=== PATIENT | female | born 1995 | race Hispanic/Latino ===

== ENCOUNTER 2016-06-10 11:14 | Emergency (ER) | payer OTHER ==
--- NOTE | 2016-06-10 12:42 | ED HAND/WRIST INJURY COMPLAINT ---
History of Present Illness General Chief Complaint: Hand or Wrist Injury Stated Complaint: R HAND INJURY Source: patient, old records, friend Exam Limitations: no limitations Vital Signs & Intake/Output Vital Signs & Intake/Output Vital Signs Date Time Temp Pulse Resp B/P Pulse O2 O2 Flow FiO2 Ox Delivery Rate 06/10 1306 98.1 94 18 118/74 100 Room Air 06/10 1146 99 Room Air 06/10 1126 98.5 108 20 120/78 99 Room Air Allergies Coded Allergies: No Known Allergies (06/10/16) Triage Note: PT TO ED FROM [facility] WITH STAFF FOR RIGHT HAND PAIN/SWELLING. PT WAS PURPOSEFULLY HITTING RIGHT HAND ON CORNER OF A DRESSER LAST NIGHT PER STAFF. RIGHT HAND SWOLLEN, +CMS, +PULSES. PT REFUSING ICE AND PAIN MEDS. Triage Nurses Notes Reviewed? yes Occurred: yesterday Duration: day(s): (2), constant Timing: recent history Injury Environment: home Severity: moderate Severity Numbers: 4 Pain/Injury Location: Right: Hand. Context: blow Method of Injury: direct blow Modifying Factors: Improves With: pain medication, rest. Worsens With: movement. 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 The supervisor electronics assembly states after punching a wall she began doing pushups. She states since she's had this pain which has been mildly improved with ibuprofen.. There is no wrist pain forearm pain or other injury. She denies any other injury she is right-hand dominant Past History Travel History Traveled to [place] past 21 day No Medical History Any Pertinent Medical History? see below for history Neurological: seizure Gastrointestinal: constipation, GERD Psychiatric: PTSD Surgical History Surgical History: non-contributory Psychosocial History What is your primary language [place] Tobacco Use: Never used ETOH Use: denies use Illicit Drug Use: denies illicit drug use Family History Hx Contributory? No Review of Systems Review of Systems Constitutional: Reports: see HPI. All Other Systems: Reviewed and Negative Comments Review of systems: See HPI, All other systems negative. Constitutional, no chills no fever, no malaise HEENT: no sore throat no congestion, no ear pain Cardiovascular: No chest pain , no palpitation Skin, no rashes, no change in skin Respiratory: No dyspnea no cough no sputum GI: No nausea no vomiting, no diarrhea, : No dysuria Muscle skeletal: joint pain, joint swelling, no back pain, no neck pain, Neurologic: No numbness , no headache Psych: No stress Heme/endocrine: No bruising no bleeding Immunology: No lymphadenopathy Physical Exam Physical Exam General Appearance: well developed/nourished, alert, awake Hand Left: normal inspection, normal range of motion Hand Right: swelling Comments: Well-developed well-nourished patient in no apparent distress. HEENT: Atraumatic, extraocular motion intact Neck: Supple, FROM Back: FROM, Cardiovascular: Regular rate and rhythms no murmurs rubs Respiratory: No respiratory distress. Patient speaking in full complete sentences. Breath sounds clear to auscultation bilaterally: NO W/R/R Shoulder: Atraumatic/Stable. FROM . Elbow: Atraumatic/stable. FROM. No laxity Upper arm/Forearm: Atraumatic. Nontender. No edema, 5 out of 5 grainer machine strength noted to bilateral upper extremities Hand/Wrist: There is significant tenderness to palpation moderate swelling and ecchymosis over over the dorsum and palmar aspect of the right hand there is no obvious deformity Skin intact. FROM the fingers however with pain, the wrist is atraumatic nontender no scaphoid tenderness Pulses: Normal/equal radial pulses bilaterally. Brisk cap refill within normal limits. Sensation noted to the distal aspects of the right hand and fingers Lower Extremities: full range of motion Neuro: Alert and oriented x3 Skin: Warm & dry;No appreciable rash on exposed skin Psych: Mood affect normal, normal memory normal judgment. Progress Differential Diagnosis: contusion, compartment syndrome, dislocation, fracture, sprain Plan of Care: Orders Procedure Date/time Status Durable Medical Equipment 06/10 1259 Active I discussed with the patient and her supervisor electronics assembly her x-ray results she is declining anything for pain again when offered. An extended volar splint was applied by me patient neurovascularly intact prior to and after application of splint advised need for close follow-up with orthopedist this week rest ice shoulder sling was applied by nursing patient feels comfortable plan I answered all her questions there for discharge (CHELLY SESAY,BLADIMIR) Diagnostic Imaging: Viewed by Me: Radiology Read. Discussed w/RAD: Radiology Read. Radiology Impression: PATIENT: HAN CHAUDHARI PRESENT AGE: 20 PATIENT ACCOUNT NO: [id number] : 93 LOCATION: [facility] ORDERING PHYSICIAN: BLADIMIR SESAY SERVICE DATE: 06/10/16-1211 EXAM TYPE: RAD - XRY- HAND, RIGHT EXAMINATION: XR HAND, RIGHT CLINICAL INFORMATION: Right hand pain and swelling COMPARISON: None TECHNIQUE: AP, lateral, and oblique views of the right hand. FINDINGS: There are obliquely oriented fractures of the third and fourth metacarpal shafts. No intra-articular extension. There is slight dorsal and ulnar displacement of the distal fragments. Joint spaces are maintained. Dorsal soft tissue swelling. IMPRESSION: Minimally displaced fractures of the midshaft of the third and fourth metacarpals. DICTATED BY: JACINTA MURRAY MD DATE/TIME DICTATED:06/10/161316 FOREST AIDE:MARCELINO DATE/TIME TRANSCRIBED:06/10/161316 CONFIDENTIAL, DO NOT COPY WITHOUT APPROPRIATE AUTHORIZATION. <Electronically signed in Other Vendor System> SIGNED BY: TERRI LEMUS,JACINTA 06/10/16 1323 Departure Departure Time of Disposition: 1259 Disposition: HOME OR SELF CARE Condition: Stable Clinical Impression Primary Impression: Hand fracture, right Referrals: MARICHUY LEMUS,YORDAN (PCP/Family) BHARAT PEGUERO MD Additional Instructions: Follow-up with orthopedist Dr. Peguero today. Keep splint in place at all times until seen by orTHO. Ibuprofen 600 mg every 8 hours for pain, return anytime sooner with any concerns Departure Forms: Customer Survey General Discharge Information Procedures Splinting Location: rue Manual Alignment Performed: No Hand-Made Type: orthoglass Splint: volar Splint Applied By: splint applied by me Pre-Proc Neuro Vasc Exam: normal Post-Proc Neuro Vasc Exam: normal
[2016-06-10 13:06] VITALS: BP 118/74
--- NOTE | 2016-06-10 13:23 | RADIOLOGY REPORT ---
EXAMINATION: XR HAND, RIGHT CLINICAL INFORMATION: Right hand pain and swelling COMPARISON: None TECHNIQUE: AP, lateral, and oblique views of the right hand. FINDINGS: There are obliquely oriented fractures of the third and fourth metacarpal shafts. No intra-articular extension. There is slight dorsal and ulnar displacement of the distal fragments. Joint spaces are maintained. Dorsal soft tissue swelling. IMPRESSION: Minimally displaced fractures of the midshaft of the third and fourth metacarpals.
== END 2016-06-10 13:06 ==
LOC: ERH 11:14
DX: S62.322A Displaced fracture of shaft of third metacarpal bone, right hand, initial encounter for closed fracture (principal); S62.324A Displaced fracture of shaft of fourth metacarpal bone, right hand, initial encounter for closed fracture; W22.03XA Walked into furniture, initial encounter
CPT/HCPCS: 73130-RT